=== PATIENT | female | born 1950 | race Caucasian/White ===

== ENCOUNTER 2024-10-18 12:57 | Outpatient (CLI) | payer MEDICARE | END 2024-10-18 12:58 | disposition home or self-care (01) | LOC: BICMAMMO 12:57 | PROVIDERS: ATTEND Family Medicine | DX: Z12.31 Encounter for screening mammogram for malignant neoplasm of breast (principal); Z80.3 Family history of malignant neoplasm of breast | CPT/HCPCS: 77063; 77067 ==

== ENCOUNTER 2025-09-19 12:31 | Outpatient (CLI) | payer MEDICARE ==
[2025-09-19] MEDS ORDERED: Iopamidol 370 76% 100 ML VIAL ONE (12:33)
[2025-09-19 13:09] LABS: Estimated GFR - POC 76.0
== END 2025-09-19 12:32 | disposition home or self-care (01) ==
LOC: CT 12:31
PROVIDERS: ATTEND Nurse Practitioner Family
DX: I73.9 Peripheral vascular disease, unspecified (principal); R19.00 Intra-abdominal and pelvic swelling, mass and lump, unspecified site
CPT/HCPCS: 36415; 75635; 82565